=== PATIENT | female | born 1970 | race Caucasian/White ===

== ENCOUNTER 2017-05-20 08:07 | Day surgery (SDC) | payer BC ==
[2017-05-19 12:16] VITALS: BMI 33.5
--- NOTE | 2017-05-20 04:32 | HP ---
HISTORY AND PHYSICAL CHIEF COMPLAINT: Left knee pain. 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 She does not recall specific new injury. She is having pain with walking along with intermittent catching and giving way. She had a previous arthroscopy in 2006. She has tried therapy in addition to an injection and anti-inflammatories with only partial temporary relief. She notes the pain is limiting her. PAST MEDICAL HISTORY: Negative. PAST SURGICAL HISTORY: Significant for left knee arthroscopy. CURRENT MEDICATIONS: Ibuprofen. ALLERGIES: She denies drug allergies. FAMILY HISTORY: Family history is negative. SOCIAL HISTORY: Significant for social alcohol use. REVIEW OF SYSTEMS: Sixteen point review of systems otherwise reviewed and is noncontributory. PHYSICAL EXAMINATION: On examination, the patient is approximately 5 foot 10, 231 pounds of endomorphic habitus. HEENT exam is nonfocal. NECK: Supple. She has painless passive motion of her left hip. Straight leg raise is negative. Active motion left knee -6 to 130 degrees of flexion. She is tender about the medial joint line. She has mild effusion. Collaterals are stable, Ree's negative, Newton's elicits medial pain. She has genu varum alignment. Her distal neurovascular appears intact in the left lower extremity. MRI report from 05/04/2017 shows increased signal on the posterior horn medial meniscus in addition to chondral defect of the medial femoral condyle and proximal medial tibia. IMPRESSION: 1. Left knee internal derangement with possible medial meniscal tear. 2. Left knee internal derangement, possible chondral injury medial femoral condyle. 3. Left knee medial compartment DJD. 4. Increased body mass index. RECOMMENDATIONS: I talked to the patient at length regarding her treatment options. At this point, she is having significant pain and mechanical symptoms despite conservative measures. After thorough discussion, she opts to proceed with surgery. We will plan to proceed with arthroscopic evaluation with possible partial medial meniscectomy in addition to medial femoral chondrectomy. Risks and benefits were discussed at length in layman's terms. We will likely perform that as an outpatient procedure. MMODL / IJN: [id number] /
[~2017-05-20 08:07] MED LIST: DEXAMETHASONE SOD PHOSPHATE 10 MG/ML 1 ML VIAL IV ONE; LACTATED RINGERS 1,000 ML IV SCH; MIDAZOLAM 2 MG/2 ML VIAL IV PRN; ONDANSETRON 4 MG/2 ML VIAL IVP ONE; SCOPOLAMINE 1.5MG/72HR PATCH TRANSDERM ONE; ceFAZolin IN SWFI 2 GM/20 ML SYRINGE IVP ONE
[2017-05-20] MEDS ORDERED: LIDOCAINE 1% 20 ML VIAL (10MG/ML) FOR IV START INTRADERMA ONE (08:37)
[2017-05-20] MEDS ORDERED: PROPOFOL 10 MG/ML 20 ML VIAL IV ONE (09:08)
[2017-05-20] MEDS ORDERED: HYDROmorphone (PF) 1 MG/ML ONE (09:08)
[2017-05-20] MEDS ORDERED: MIDAZOLAM 2 MG/2 ML VIAL ONE (09:08)
[2017-05-20] MEDS ORDERED: LIDOCAINE 1% INJ 10MG/ML (20 ML MDV) ONE (09:08)
[2017-05-20] MEDS ORDERED: fentaNYL (PF) 50 MCG/ML 2 ML AMP ONE (09:08)
[2017-05-20] MEDS ORDERED: SODIUM CHLORIDE 0.9% 20 ML with ceFAZolin 2 GM IV ONE ×2 (09:15)
[2017-05-20 10:08] VITALS: TEMP 97.4
--- NOTE | 2017-05-20 10:11 | P.OP ---
Date of Procedure: 05/20/17 Preoperative Diagnosis: Left knee internal derangement Postoperative Diagnosis: Left knee posterior medial meniscal tear/grade 3 chondral injury medial femoral condyle/grade 3 chondral injury lateral femoral condyle/grade 2 chondral injury lateral patella facet/reactive synovitis Procedure(s) Performed: Left knee arthroscopic partial medial meniscectomy/medial femoral chondrectomy/ lateral femoral chondrectomy/patellar chondroplasty/partial synovectomy of the medial, lateral, and patellofemoral compartments Anesthesia: GETA Surgeon: Remy Kat Estimated Blood Loss (ml): 10 Pathology: none sent Condition: stable Disposition: PACU Indications for Procedure: The patient's a 46-year-old female presents with progressive left knee pain and mechanical symptoms worsening recently despite conservative measures. A discussion of the risks and benefits of operative intervention versus continued conservative measures was made with patient. She opted to proceed with surgery. Operative risks to include infection, neurovascular injury, development of blood clots, possible incomplete resolution of symptoms, possible worsening of symptoms related to her osteoporosis and need for subsequent procedures was discussed. Informed consent was obtained. Operative Findings: As below Description of Procedure: The patient was brought to the operating room, and after induction of anesthesia , I examined the left knee. Collaterals were stable, Ree was negative, and posterior drawer was negative. The left lower extremity was prepped and draped in normal fashion. A superior lateral portal was made through a 3 mm skin incision superior and lateral to the patella. This was used for outflow. A lateral portal was made through a 5 mm skin incision lateral to the patella tendon above the joint line. Diagnostic arthroscopy was performed. A medial portal was made through a similar incision medial to the patella tendon above the joint line. On inspection the medial compartment, she is noted to have an oblique tear involving the posterior most aspect the medial meniscus in the white-red junction. This was not amenable to repair. This debris back to stable base with straight baskets and a motorized shaver. The edges were contoured. Remaining medial meniscus was stable and intact. A grade 3 chondral injury involving the posterior central portion medial femoral condyle was noted. There was a loose chondral fragment debrided back to stable base with motorized shaver. Diffuse degenerative changes were noted throughout the medial compartment. Reactive synovitis involving the anterior medial, anterior lateral, and patellofemoral compartments was debrided with a motorized shaver. On inspection the notch anterior cruciate ligament appeared to be intact. On inspection of the lateral compartment, a large grade 2/3 chondral injury involving the lateral aspect of the distal lateral femoral condyle was noted. There was a large loose chondral flap. This debrided back to stable base with a motorized shaver. The lateral meniscal is appeared to be stable and intact. On inspection patellofemoral articulation, a grade 2/3 chondral injury was noted involving the lateral patella facet with a loose chondral fragment. This debrided back to a stable base with a motorized shaver. The gutters were clear debris. The knee was then thoroughly irrigated. The portals were closed with Steri-Strips. A sterile dressing was applied in addition to a compression stocking. The patient was awoken from general anesthesia and transferred to recovery room in good condition. Blood loss was estimated at 10 mL. No complications were incurred.
[2017-05-20] MEDS ORDERED: KETOROLAC 30 MG/ML 1 ML VIAL IVP ONE (10:16)
[2017-05-20] MEDS: HYDROmorphone 0.5 MG/0.5 ML SYRINGE IVP PRN ×4 (10:19→10:40)
[2017-05-20] MEDS ORDERED: MEPERIDINE 50 MG/ML SYRINGE IVP ONE (10:47)
[2017-05-20 11:10] VITALS: RESP 18
[2017-05-20] MEDS ORDERED: HYDROcodone/APAP 5-325MG 1 EACH TAB PO ONE (12:16)
[2017-05-20] MEDS ORDERED: LACTATED RINGERS 1,000 ML IV ONE (13:24)
[2017-05-20 13:36] VITALS: BP 123/78; PULSE 66
== END 2017-05-20 13:55 | disposition home or self-care (01) ==
LOC: OR 08:07
PROVIDERS: ATTEND Orthopaedic Surgery
DX: S83.242A Other tear of medial meniscus, current injury, left knee, initial encounter (principal); S83.32XA Tear of articular cartilage of left knee, current, initial encounter; M65.862 Other synovitis and tenosynovitis, left lower leg; X58.XXXA Exposure to other specified factors, initial encounter; Z79.1 Long term (current) use of non-steroidal anti-inflammatories (NSAID)
CPT/HCPCS: 81025; 29881; J2250; J1100; J2175; J0690; J2405; J2001; J3010; J1885; J1170 ×2; J2704

== ENCOUNTER → 2017-11-22 | Outpatient (CLI) | payer BC ==
--- NOTE | 2017-11-22 17:16 | CONS ---
CONSULTATION REASONS FOR CONSULTATION: Excessive hypersomnia and fatigue. HISTORY OF PRESENT ILLNESS: This is a 47-year-old female patient, mother of 5 children. Who has worked for many hours over the past 15 years. 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 She used to work between 10 p.m. and 6:30 am in the morning. 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 Based on this, the patient had limited number of hours and she used to sleep somewhere between 8:00 am and midnight if she has she was given the chance to do so and she had the same sleep pattern for almost 15 years. Recently she quit her midnight job and she is working only her daytime job. Currently she is going to bed around 10:00 pm, wakes up at 4 a.m. in the morning. She had difficulties in switching her sleep to nighttime and she consulted with her primary care physician and she was started on 100 mg of trazodone at bedtime. She is able to sleep around 6-6.5 hours over a 24 hour period. Nevertheless, her has noted that she has been snoring very loud and at times, she would quit breathing and this obviously raises concern for obstructive sleep apnea. She feels tired and sleepy during the day. She has gained considerable amount of weight, 30 pounds over the past 6 months and 50 pounds over the past 5 years. She denies waking up in the middle of night for choking or gasping. No grinding of the teeth. Her current [place] score is 9. PAST MEDICAL HISTORY: Obesity. SURGICAL HISTORY: Lap band. ALLERGIES: Not known. OUTPATIENT MEDICATION: Includes trazodone and Naprosyn. SOCIAL HISTORY: Nonsmoker. No history of alcohol. No IV drugs. FAMILY HISTORY: Negative for sleep apnea. REVIEW OF SYSTEMS: 12-point review of system was done. It is positive for excessive fatigue and sleepiness along with snoring. No reported history of choking or gasping for air. No nocturia. No grinding of the teeth. No dry mouth. No anxiety or panic attacks. No palpitation. No heartburn. No restlessness in lower extremities. No sleepwalking or sleep talking. No problems with memory and concentration. No sleep paralysis. No hallucinations. No cataplexy. PHYSICAL EXAMINATION: BP is 137/83, pulse 97, respirations 16, temperature 97.3. Saturation 98% on room air. Height is 5 feet 8 inches, weight is 264, and BMI is 40.1, neck size 15 inches. General appearance: Calm, comfortable. Head is atraumatic, normocephalic. Neck is short, supple. Crowding of posterior pharynx. There is no goiter or neck masses. LUNGS: Diminished breath sounds bilaterally otherwise clear. HEART: Sounds are regular rate and rhythm. Normal S1, S2. No S3, S4. No murmurs. ABDOMEN: Soft, nontender. No organomegaly. EXTREMITIES: No edema. No cyanosis or clubbing. Skin: The patient has no wounds or ulcerations. NEUROLOGIC: The patient is alert and oriented x3. There is no focal neurological deficits. IMPRESSION: 1. Chronic hypersomnia [place] score of 9 currently under investigation. Rule out obstructive sleep apnea. 2. Abnormal sleep hygiene measures, improved as the patient remained at her midnight job and currently she is able to initiate and maintain around 6 hours of sleep on a 24 hour period and she is also on trazodone for sleep induction and maintenance. 3. Obesity with interval weight gain. Current BMI is 40.1. 4. Loud snoring. PLAN: 1. Encourage weight loss. 2. Continue trazodone for sleep induction and maintenance. 3. Improve sleep hygiene measures. 4. Set up this patient for screening polysomnogram looking for any significant obstructive sleep apnea contributing to her chronic hypersomnia. MMODL / IJN: [id number] /
== END | disposition home or self-care (01) ==
LOC: SLEEP 13:57
PROVIDERS: ATTEND Internal Medicine Critical Care Medicine
DX: G47.10 Hypersomnia, unspecified (principal); R06.83 Snoring; E66.9 Obesity, unspecified; Z68.41 Body mass index [BMI] 40.0-44.9, adult; Z72.821 Inadequate sleep hygiene; Z98.84 Bariatric surgery status; Z79.899 Other long term (current) drug therapy
CPT/HCPCS: 99211

== ENCOUNTER → 2017-12-19 | Outpatient (CLI) | payer BC ==
--- NOTE | 2017-12-19 08:55 | MR ---
EXAMINATION TYPE: MR knee RT wo con DATE OF EXAM: 12/19/2017 COMPARISON: Outside radiographs dated 11/09/2017 of the right knee HISTORY: Right knee pain TECHNIQUE: Multiplanar, multisequence imaging of the right knee is performed without IV contrast. FINDINGS: MEDIAL MENISCUS: There is a complex tear of the body and posterior horn of the medial meniscus. There is a longitudinal tear of the body and posterior horn with radial component and complete radial tear of the posterior horn approximately 7 mm on the posterior root. Intraosseous ganglion is also noted at the insertion of the posterior root that is multiloculated within the tibial plateau. Anterior hor n is grossly intact but slightly enlarged suggesting involvement of the longitudinal tear. LATERAL MENISCUS: Anterior and posterior horns are intact without tear. Incidental note is made of th ickening of the meniscal femoral ligament. CRUCIATE LIGAMENTS: The anterior and posterior cruciate ligaments are intact. Posterior fibers are di minutive and of high signal suggesting low-grade sprain. COLLATERAL LIGAMENTS: The medial collateral ligament and lateral collateral ligament complex are inta ct. High signal seen both superficial and deep to the medial collateral ligament although there is no discontinuity. Findings suggest underlying low-grade injury and MCL bursitis. EXTENSOR MECHANISM: Visualized quadriceps and patellar tendons are intact. EFFUSION: Small uncomplicated suprapatellar joint effusion is seen. POPLITEAL CYST: There is an elongated multiloculated popliteal cyst measuring up to 9.4 cm in cranio caudal dimension. TRICOMPARTMENT SPACES: As seen on the prior radiographs are tricompartmental marginal osteophytes and medial compartment joint space narrowing. CARTILAGE: There is a full-thickness cartilaginous defect of the weightbearing surface of the medial femoral compartment involving both tibial and femoral cartilage. Femoral defect measures 2.6 x 1.6 cm and tibial defect measures 1.7 x 1.0 cm. There is signal heterogeneity within the lateral compartment cartilage without focal defect. There is diffuse signal heterogeneity, focal apical fissuring, and lateral facet undermining without full-thickness defect. Fissure of the central trochlea is also seen as well as signal heterogeneity. BONE MARROW SIGNAL: There is mild opposing surface bone marrow edema of the medial weightbearing surf mony of the femoral condyle and medial tibial plateau likely secondary to full-thickness cartilaginous loss and meniscal tear. IMPRESSION: 1. Complex tear of the medial meniscus involving the body, posterior horn, approaching the posterior root, and suspected to involve the anterior horn. 2. Moderate tricompartmental arthropathy and severe medial compartment and chondrosis with full-thick ness cartilaginous defect of the weightbearing surface of the medial femoral condyle measuring 2.6 x 1.6 cm within the femur and 1.7 x 1.0 cm within the tibia on bone articulation and mild resultant opp osing surface bone marrow edema of the femoral condyle and medial tibial plateau. 3. Findings suggestive of low-grade injury of the ACL and medial collateral ligament with medial shira ateral ligament bursitis. 4. Small uncomplicated suprapatellar joint effusion. 5. Elongated multiloculated popliteal cyst measuring up to 9.4 cm.
== END | disposition home or self-care (01) ==
LOC: RADMRIMAIN 07:14
PROVIDERS: ATTEND Orthopaedic Surgery
DX: S83.231A Complex tear of medial meniscus, current injury, right knee, initial encounter (principal); M71.21 Synovial cyst of popliteal space [Baker], right knee; M17.11 Unilateral primary osteoarthritis, right knee; R93.7 Abnormal findings on diagnostic imaging of other parts of musculoskeletal system

== ENCOUNTER → 2018-08-02 | Outpatient (CLI) | payer BC ==
[2018-08-02 16:51] LABS: HCT 38.6 % (34.0-46.0); HGB 12.2 gm/dL (11.4-16.0); Hypochromasia Slight; MCH 26.3 pg (25.0-35.0); MCHC 31.6 g/dL (31.0-37.0); MCV 83.4 fL (80.0-100.0); Mean Platelet Volume 6.7; Platelet Count 396 k/uL (150-450); RBC 4.63 m/uL (3.80-5.40); RDW 14.4 % (11.5-15.5); WBC 12.7 k/uL (3.8-10.6)
[2018-08-02 17:08] LABS: INR 0.9 (<1.2); Prothrombin Time 9.8 sec (9.0-12.0)
[2018-08-02 23:10] LABS: Anion Gap 10.5 mmol/L (4.00-12.00); Calcium 9.1 mg/dL (8.7-10.3); Carbon Dioxide 23.5 mmol/L (21.6-31.8); Potassium 4.3 mmol/L (3.5-5.5)
[2018-08-02 23:33] LABS: Hemoglobin A1C 4.9 % (4.0-6.0)
== END | disposition home or self-care (01) ==
LOC: LABWHC1 15:46
PROVIDERS: ATTEND Orthopaedic Surgery Adult Reconstructive Orthopaedic Surgery
DX: Z01.812 Encounter for preprocedural laboratory examination (principal)
CPT/HCPCS: 36415; 80048; 83036; 85027; 85610; 87070

== ENCOUNTER → 2018-10-31 | Outpatient (CLI) | payer BC ==
[2018-10-31 08:38] LABS: Basophils # (A) 0.1 k/uL (0-0.2); Basophils % (A) 1 %; Eosinophils # (A) 0.3 k/uL (0-0.7); Eosinophils % (A) 4 %; HCT 41.2 % (34.0-46.0); Hypochromasia Slight; Lymphocytes # (A) 1.7 k/uL (1.0-4.8); Lymphocytes % (A) 19 %; MCHC 31.5 g/dL (31.0-37.0); MCV 79.6 fL (80.0-100.0); Mean Platelet Volume 6.6; Monocytes # (A) 0.5 k/uL (0-1.0); Monocytes % (A) 5 %; Neutrophils % (A) 69 %; Platelet Count 402 k/uL (150-450); RBC 5.18 m/uL (3.80-5.40); RDW 14.4 % (11.5-15.5); WBC 8.8 k/uL (3.8-10.6)
[2018-10-31 12:37] LABS: Erythrocyte Sedimentation Rate 16 mm/hr (0-20)
[2018-10-31 16:22] LABS: Iron Saturation 12.46 (12.00-45.00)
[2018-10-31 16:35] LABS: C Reactive Protein 2.2 mg/dL (0.0-0.8)
[2018-10-31 16:44] LABS: T4, Free (Free Thyroxine) 1.1 ng/dL (0.80-1.80)
== END | disposition home or self-care (01) ==
LOC: LABWHC1 07:43
DX: C94.6 Myelodysplastic disease, not elsewhere classified (principal)
CPT/HCPCS: 36415; 81206; 82728; 83540; 83550; 83615; 84439; 84443; 85025; 85652; 86140

== ENCOUNTER → 2018-12-30 | Outpatient (CLI) | payer BC ==
[2018-12-30 09:41] LABS: Basophils # (A) 0.1 k/uL (0-0.2); Basophils % (A) 1 %; Eosinophils # (A) 0.3 k/uL (0-0.7); Eosinophils % (A) 3 %; HCT 44.3 % (34.0-46.0); HGB 13.8 gm/dL (11.4-16.0); Lymphocytes % (A) 17 %; MCH 25.9 pg (25.0-35.0); MCHC 31.2 g/dL (31.0-37.0); MCV 82.9 fL (80.0-100.0); Mean Platelet Volume 6.6; Monocytes # (A) 0.5 k/uL (0-1.0); Monocytes % (A) 4 %; Neutrophils # (A) 8.9 k/uL (1.3-7.7); Neutrophils % (A) 75 %; Platelet Count 384 k/uL (150-450); RBC 5.35 m/uL (3.80-5.40); RDW 15.9 % (11.5-15.5)
[2018-12-30 09:53] LABS: African American GFR (CKD) >90 (>60 ml/min/1.73 sqM); Anion Gap 9 mmol/L; Blood Urea Nitrogen 10 mg/dL (7-17); Carbon Dioxide 27 mmol/L (22-30); Chloride 106 mmol/L (98-107); Glucose 92 mg/dL (74-99); Potassium 4.8 mmol/L (3.5-5.1); Sodium 142 mmol/L (137-145)
== END | disposition home or self-care (01) ==
LOC: LABPAT 08:51
PROVIDERS: ATTEND Obstetrics & Gynecology Obstetrics
DX: Z01.818 Encounter for other preprocedural examination (principal)
CPT/HCPCS: 36415; 80051; 82565; 82947; 84520; 85025; 87086

== ENCOUNTER 2019-01-09 07:16 | Day surgery (SDC) | payer BC ==
[2019-01-03 14:51] VITALS: BMI 33.0
--- NOTE | 2019-01-08 09:57 | HP ---
HISTORY AND PHYSICAL Preoperative history and physical for surgery tomorrow, 01/09/2019. CHIEF COMPLAINT: Heavy menstrual bleeding, dysmenorrhea. HISTORY OF PRESENT ILLNESS: This is a pleasant 48-year-old female, 5, para 5-0-0-5 that presents with increasing fatigue and heavy menstrual cycles. The patient has had an endometrial ablation done in 2009 and did well up until mid November. Patient noted that her bleeding became very heavy with increasing dysmenorrhea. Patient subsequently went to see her primary care doctor when was diagnosed with iron deficiency anemia. The patient has had an iron infusion without relief of symptoms. Patient does struggle with constipation, but she denies any change in her bowel patterns and she denies changes in stool color. Patient does wish definitive treatment with hysterectomy and ovarian conservation given her age. The patient subsequently had an ultrasound done here in the office on November 29, 2018, which revealed the uterus with the appearance of adenomyosis. Uterus is noted to be normal in size. PAST MEDICAL HISTORY: 1. Anemia. 2. History of HSV. PAST SURGICAL HISTORY: Endometrial ablation done in approximately 2009. ALLERGIES: No known drug allergies. FAMILY HISTORY: No significant family medical history. REPRODUCTIVE HISTORY: This is a 5, para 5, with a history of 5 vaginal deliveries in the past. Her menstrual cycles ceased after the ablation was done in 2009, but have been excessively heavy and irregular since it restarted in the beginning of November. SOCIAL HISTORY: She is a nonsmoker. She admits to minimal alcohol use. REVIEW OF SYSTEMS: She denies body aches or night sweats, but does note fatigue. She denies shortness of breath or cough. She denies nausea or vomiting, but admits to constipation and some abdominal pain. GENITOURINARY: She admits to dysmenorrhea and menorrhagia symptoms. She denies urgency, frequency, dysuria, or vaginal discharge. PHYSICAL EXAMINATION: Vital Signs are noted to be stable when patient was seen here in the office. In general, this is a well-nourished, well-developed, alert female in no acute distress. Her lungs are clear to auscultation bilaterally. Her heart has a regular rate and rhythm. Her abdomen is noted to be slightly obese and soft with normal bowel sounds. On vaginal exam, the vaginal mucosa is noted to be pink and well rugated. The cervix is noted to be normal in nature with no lesions, but is stenotic. Endometrial biopsy was attempted but failed secondary to the stenosis. On pelvic exam, the uterus is mobile and no adnexal masses are appreciated. ASSESSMENT: 1. Menorrhagia. 2. Anemia. 3. Dysmenorrhea. 4. Failed endometrial ablation. PLAN: We will plan robotic assisted vaginal hysterectomy with ovarian conservation, possible bilateral salpingo-oophorectomy should the pathology be seen at the time of surgery. Diagnostic cystoscopy will be performed at the end of the procedure. Possible open to complete the procedure. Risks of surgery were reviewed with the patient in detail including, but not limited to infection, bleeding, damage to bladder, bowel, ureteric or other pelvic structures. The patient understands the risks of the surgery and does wish to proceed. All questions are answered to the patient's satisfaction and we will plan on robotic assisted vaginal hysterectomy, diagnostic cystoscopy, possible bilateral salpingo-oophorectomy, possible open to complete procedure. MMODL / IJN: [id number] /
[~2019-01-09 07:16] MED LIST changes: -LACTATED RINGERS 1,000 ML IV SCH; +fentaNYL (PF) 50 MCG/ML 2 ML AMP IV PRN
[2019-01-09] MEDS: LACTATED RINGERS 1,000 ML IV SCH ×2 (07:55→20:07)
[2019-01-09] MEDS ORDERED: LACTATED RINGERS 1,000 ML IV ONE ×2 (11:35)
[2019-01-09] MEDS ORDERED: BUPIVACAINE (PF) 0.25% 30 ML VIAL SQ ONE ×2 (11:39→12:38)
--- NOTE | 2019-01-09 12:31 | P.HPOB ---
History of Present Illness H&P Date: 01/08/19 Chief Complaint: menorrhagia, dysmenorrhea, failed EA Past Medical History Additional Past Medical History / Comment(s): anemia,heavy menses History of Any Multi-Drug Resistant Organisms: None Reported Past Surgical History: Bariatric Surgery, Joint Replacement, Uterine Ablation Additional Past Surgical History / Comment(s): sarah knee replacement,lap band-fluid removed Past Anesthesia/Blood Transfusion Reactions: Motion Sickness Additional Past Anesthesia/Blood Transfusion Reaction / Comment(s): no hx blood transfusion Smoking Status: Never smoker - Past Family History Mother Family Medical History: No Reported History Medications and Allergies Home Medications Medication Instructions Recorded Confirmed Type Acetaminophen [Tylenol] 325 - 650 mg PO Q4H PRN 01/03/19 01/03/19 History Allergies Allergy/AdvReac Type Severity Reaction Status Date / Time hydrocodone [From Vicodin] Allergy Rash/Hives Verified 01/03/19 14:44 Exam Osteopathic Statement: *. No significant issues noted on an osteopathic structural exam other than those noted in the History and Physical/Consult.
--- NOTE | 2019-01-09 12:40 | P.OP ---
Date of Procedure: 01/09/19 Preoperative Diagnosis: menorrhagia, dysmenorrhea, anemia, failed EA Postoperative Diagnosis: same plus endometriosis Procedure(s) Performed: Robotic cyst vaginal hysterectomy with right salpingectomy, diagnostic cystoscopy Anesthesia: CORDELIA Surgeon: Ellie Rg Patient Account Liaison #1: Dulce Ribeiro Estimated Blood Loss (ml): 50 IV fluids (ml): 1,600 Urine output (ml): 475 Pathology: other (Uterus, right fallopian tube) Condition: stable Disposition: PACU Indications for Procedure: Failed endometrial ablation, menorrhagia, anemia Operative Findings: Enlarged globular uterus with signs of endometriosis and scarring. Description of Procedure: Patient was seen in the preoperative area and informed consent was obtained once again. Patient was counseled on the risks of surgery including but not limited to infection, bleeding, damage to bladder, bowel, ureteric or other pelvic structures. Patient stated understanding and wishes to proceed. Patient does desire ovarian conservation if at all possible. Patient was taken back to the operating suite where general anesthesia was obtained without difficulty by the anesthesia department. She was then prepped and draped in the normal sterile fashion in the dorsal lithotomy position. A weighted speculum was placed in the posterior vaginal vault and the anterior lip of the cervix was visualized gr asped with single tooth tenaculum and the endocervical canal was then dilated. A [employer]oder uterine manipulator was advanced into the uterus as a means to manipulate the uterus with the cervical cup being placed snugly against the cervix. A Jones catheter was placed under sterile technique. Attention was then turned to the patient's abdomen where 2 finger breaths above the umbilicus a small skin incision is made, this incision the Veress needle was placed. Once the Veress needle is deemed to be The position with a drop in CO2 pressure with insufflation of CO2 gas CO2 insufflation was allowed to occur. Approximately 3 L of gas or used to obtain pneumoperitoneum. At this time the incision was elongated to 12 mm and a 12 mm trocar and sleeve with the laparoscope in place placed through the incision and toward the pneumoperitoneum. At this time the above-noted findings are visualized. Additional port sites are then placed at 10 cm lateral and 3 cm inferior midline port these are operative 8 mm ports through the da Yisel machine. In the left upper quadrant a 12 mm trocar and sleeve is placed under direct visualization. At this time the da Yisel was docked in the usual fashion. The operative arms are then placed. In the right operative arm the monopolar scissors is placed in the left operative arm the bipolar forceps is placed. Attention then turned to the patient's uterine ovarian ligament which was visualized visualized regulated distally and proximally and divided. This continued through the broad and toward the round which was coagulated distally and proximal plane divided. The bladder flap from the left was then created using sharp and blunt dissection. Of note the left ovary and fallopian tube were noted to be slightly adherent to the bowel. Attention was then turned the patient's right uterine ovarian ligament which was visualized coagulated distally and proximally divided. The fallopian tube had been coagulated and transected prior to this. The round ligament was visualized coagulated distally and proximally divided. The bladder flap from the right was then created using sharp and blunt dissection. At this time the descending branch of the uterine artery was visualized coagulated and transected. Hemostasis was appreciated. This was then repeated on the opposite side. At this time Remaining attachment was a vaginal attachment therefore colpotomy incision was made in a circumferential fashion uterus and right fallopian tube were delivered through the vaginal opening. The pelvis then copiously irrigated and hemostasis was appreciated. The vaginal cuff was then closed with [id number] sutures of 0 Vicryl 4. Closure was complete hemostasis was appreciated. FloSeal was placed along the right lateral edge of the vaginal cuff. The right ureter was visualized and pulsating in a normal fashion. At this time all instruments removed from the patient's abdomen and the da Yisel was undocked in usual fashion. Attention was then turned the patient's Jones catheter which was removed without difficulty. The cystoscope was then performed. This cystoscope was placed through the urethra and toward the bladder bladder bubble was noted both ureteral orifices were noted to be spilling clear yellow urine. No bladder injuries were noted. The cystoscope was removed and the Jones catheter was replaced. Attention then turned the patient's abdomen where the skin incisions were closed with 4-0 Vicryl subcuticular fashion. Steri-Strips and sterile dressings were applied as needed. All counts were correct 2 patient tolerated procedure well and was taken the recovery room awake in stable condition.
[2019-01-09] MEDS ORDERED: HYDROmorphone 1 MG/ML 1 ML SYRINGE IVP ONE ×4 (12:50→13:09)
[2019-01-09] MEDS ORDERED: IBUPROFEN IV 800 MG in SODIUM CHLORIDE 0.9% 250 ML IV ONE (13:30)
[2019-01-09] MEDS: IBUPROFEN 600 MG TAB PO PRN (19:53)
[2019-01-09] MEDS ORDERED: traZODone HCL 50 MG TAB PO SCH (21:00)
[2019-01-09] MEDS: DOCUSATE 100 MG CAP PO SCH (21:06)
[2019-01-10] MEDS: IBUPROFEN 600 MG TAB PO PRN ×2 (03:46→08:55)
[2019-01-10 03:50] VITALS: TEMP 98.1
[2019-01-10 08:20] LABS: Basophils # (A) 0.1 k/uL (0-0.2); Basophils % (A) 0 %; Eosinophils # (A) 0.1 k/uL (0-0.7); Eosinophils % (A) 1 %; HCT 37.6 % (34.0-46.0); HGB 11.9 gm/dL (11.4-16.0); Lymphocytes # (A) 2.5 k/uL (1.0-4.8); Lymphocytes % (A) 16 %; MCH 26.6 pg (25.0-35.0); MCHC 31.7 g/dL (31.0-37.0); MCV 83.9 fL (80.0-100.0); Mean Platelet Volume 7.5; Monocytes # (A) 0.7 k/uL (0-1.0); Monocytes % (A) 4 %; Neutrophils # (A) 12.2 k/uL (1.3-7.7); Neutrophils % (A) 78 %; Platelet Count 317 k/uL (150-450); RBC 4.48 m/uL (3.80-5.40); RDW 15.9 % (11.5-15.5); WBC 15.7 k/uL (3.8-10.6)
--- NOTE | 2019-01-10 08:45 | P.DS ---
Providers Date of admission: 01/09/2019 Expected date of discharge: 01/10/19 Attending physician: Ellie Rg Primary care physician: Lucho Dong - Discharge Diagnosis(es) (1) Menorrhagia Current Visit: Yes Status: Acute (2) Dysmenorrhea Current Visit: Yes Status: Acute (3) Anemia Current Visit: Yes Status: Acute Hospital Course: This is a pleasanr 48 female that presents for DAGOBERTO/DC 12/10/2018. she had an EA done in 2009 and subsequently in november started having heavy, painful menses. she was seen by PCP and Iron deficiency anemia was diagnosed, subsequently she was placed on iron infusions. she underwent surgery without difficulty. signs of endometriosis were noted, for further details on the surgery please see the operative note. post operatively she is doing well. she is noting some gas pain but is walking and has had a spontaneous void. she is tolerating a regular diet without nausea or vomiting. she denies VB no n/v/f/c/ Plan - Discharge Summary Discharge Rx Participant: No New Discharge Prescriptions: No Action Acetaminophen [Tylenol] 325 - 650 mg PO Q4H PRN PRN Reason: Pain traZODone HCL 50 mg PO HS Discharge Medication List Acetaminophen [Tylenol] 325 - 650 mg PO Q4H PRN 01/03/19 [History] traZODone HCL 50 mg PO HS 01/09/19 [History] Follow up Appointment(s)/Referral(s): Ellie Rg DO [Doctor of Osteopathic Medicine] - 1 Week Patient Instructions/Handouts: Laparoscopic Hysterectomy (DC), Laparoscopic Hysterectomy (GEN) Discharge Disposition: HOME SELF-CARE
[2019-01-10 08:53] VITALS: BP 121/84; PULSE 70; RESP 16
[2019-01-10] MEDS: DOCUSATE 100 MG CAP PO SCH (08:56)
== END 2019-01-10 11:59 | disposition home or self-care (01) ==
LOC: OR 07:16 → 6PED 14:08 → OR 01-10 11:59
PROVIDERS: ATTEND Obstetrics & Gynecology Obstetrics
DX: N92.0 Excessive and frequent menstruation with regular cycle (principal); N94.6 Dysmenorrhea, unspecified; D50.9 Iron deficiency anemia, unspecified; N80.0 Endometriosis of uterus; N72 Inflammatory disease of cervix uteri; Z98.84 Bariatric surgery status; Z86.19 Personal history of other infectious and parasitic diseases; Z79.899 Other long term (current) drug therapy; Z88.5 Allergy status to narcotic agent; Z96.653 Presence of artificial knee joint, bilateral
CPT/HCPCS: 58552; S2900; 81025; 85025; 86850; 86900; 86901; 88307

== ENCOUNTER → 2019-03-06 | Outpatient (CLI) | payer BC ==
--- NOTE | 2019-03-06 10:00 | XR ---
EXAMINATION TYPE: XR chest 2V DATE OF EXAM: 03/06/2019 COMPARISON: NONE HISTORY: Abnormal blood count. Pneumonia. Fatigue. TECHNIQUE: Frontal and lateral views of the chest are obtained. FINDINGS: There is no focal air space opacity, pleural effusion, or pneumothorax seen. The cardiac silhouette size is within normal limits. The osseous structures are intact. Mild degenerative garibay es of the glenohumeral joints, left greater than right and acromioclavicular joints are seen. Minimal degenerative changes of the thoracic spine. External tubing overlies the upper abdomen on the latera l view only. IMPRESSION: No acute cardiopulmonary process.
--- NOTE | 2019-03-06 14:12 | MM ---
Reason for exam: screening (asymptomatic). History: Patient is postmenopausal. Physical Findings: A clinical breast exam by your physician is recommended on an annual basis and results should be correlated with mammographic findings. MG 3D Screening Mammo W/Cad Bilateral CC and MLO view(s) were taken. The breast tissue is heterogeneously dense. This may lower the sensitivity of mammography. No discrete abnormality. ASSESSMENT: Negative, BI-RAD 1 RECOMMENDATION: Routine screening mammogram of both breasts in 1 year.
== END | disposition home or self-care (01) ==
LOC: RADMAMWWP 06:58
DX: Z12.31 Encounter for screening mammogram for malignant neoplasm of breast (principal); J18.9 Pneumonia, unspecified organism
CPT/HCPCS: 71046; 77063; 77067

== ENCOUNTER → 2020-03-25 | Outpatient (CLI) | payer BC ==
--- NOTE | 2020-03-25 14:29 | MM ---
Reason for exam: additional evaluation requested from abnormal screening. Last mammogram was performed 1 month ago. History: Patient is postmenopausal. Physical Findings: Nurse did not find any significant physical abnormalities on exam. MG 3D Work Up W/Cad RT Spot compression CC, spot compression MLO, and LM view(s) were taken of the right breast. Prior study comparison: March 07, 2020, bilateral MG 3d screening mammo w/cad. March 06, 2019, bilateral MG 3d screening mammo w/cad. The breast tissue is heterogeneously dense. This may lower the sensitivity of mammography. The lateral posterior central focal asymmetry becomes less defined on spot images, suspect fibroglandular tissue. 6 month follow up recommended as it was not clearly seen previously. These results were verbally communicated with the patient and result sheet given to the patient on 03/25/20. ASSESSMENT: Probably benign, BI-RAD 3 RECOMMENDATION: Follow-up diagnostic mammogram of the right breast in 6 months.
== END | disposition home or self-care (01) ==
LOC: RADMAMWWP 13:32
PROVIDERS: ATTEND Obstetrics & Gynecology Obstetrics
DX: R92.8 Other abnormal and inconclusive findings on diagnostic imaging of breast (principal)
CPT/HCPCS: 77061; 77065

== ENCOUNTER → 2020-05-01 | Outpatient (CLI) | payer BC ==
--- NOTE | 2020-05-06 10:23 | USB ---
Reason for exam: clinical finding. History: Patient is postmenopausal. Indicated problem(s): pain in the right breast. Physical Findings: Nurse Summary: Patient complains of right pain lateral x 6 weeks (nurse mj). US Breast Limited RT Technologist: Karina Andrews Right limited breast ultrasound including focal area of concern, retroareolar and axilla demonstrates a 0.4 x 0.7 x 0.4cm cystic lesion at 8 o'clock, thin walled cyst and a 0.7 x 0.5 x 0.4cm benign lymph node at 9 o'clock. These results were verbally communicated with the patient and result sheet given to the patient on 05/01/20. ASSESSMENT: Benign, BI-RAD 2 RECOMMENDATION: Return to routine screening mammogram schedule for both breasts. Manage patient on a clinical basis.
== END | disposition home or self-care (01) ==
LOC: RADUSWWP 06:57
PROVIDERS: ATTEND Obstetrics & Gynecology Obstetrics
DX: N64.4 Mastodynia (principal)

== ENCOUNTER → 2020-08-12 | Outpatient (CLI) | payer BC ==
--- NOTE | 2020-08-12 09:40 | MM ---
Reason for exam: follow-up at short interval from prior study. Last mammogram was performed 5 months ago. History: Patient is postmenopausal. Physical Findings: Nurse did not find any significant physical abnormalities on exam. MG 3D Diag Mammo W/Cad RT CC and MLO view(s) were taken of the right breast. Prior study comparison: March 25, 2020, right breast MG 3d work up w/cad RT. March 07, 2020, bilateral MG 3d screening mammo w/cad. The breast tissue is heterogeneously dense. This may lower the sensitivity of mammography. There is no discrete abnormality. No significant new findings when compared with previous films. These results were verbally communicated with the patient and result sheet given to the patient on 08/12/20. ASSESSMENT: Benign, BI-RAD 2 RECOMMENDATION: Return to routine screening mammogram schedule for both breasts. Back on schedule. Manage on a clinical basis with regard to pain.
== END | disposition home or self-care (01) ==
LOC: RADMAMWWP 08:20
PROVIDERS: ATTEND Obstetrics & Gynecology Obstetrics
DX: R92.8 Other abnormal and inconclusive findings on diagnostic imaging of breast (principal)
CPT/HCPCS: 77061; 77065

== ENCOUNTER → 2022-12-04 | Outpatient (CLI) | payer BC ==
--- NOTE | 2022-12-04 11:55 | MR ---
EXAMINATION TYPE: MR shoulder RT wo con DATE OF EXAM: 12/04/2022 COMPARISON: None. HISTORY: Right shoulder pain with difficulty raising arm overhead for 4 months TECHNIQUE: Multiplanar, multisequence imaging of the right shoulder is performed without contrast. FINDINGS: Rotator Cuff: Supraspinatus and infraspinatus tendons are both intact. Rotator cuff muscle bulk is pr eserved. Subscapularis tendon appears intact. Acromioclavicular Joint: Mild narrowing with mild to moderate capsular hypertrophy. No significant sp urring. Glenohumeral Joint: There is large size joint effusion with prominent bony projection or osteophyte e xtending inferiorly from the medial humeral head. Narrowing inferiorly is noted. Labrum: The labrum appears grossly intact given limitation of non-arthrogram study. Biceps Tendon: The long head of biceps is in normal location within bicipital groove. Slight increase d signal and thickening intracapsular portion near biceps anchor. Bone marrow signal: No focal abnormal marrow signal is appreciated. Other: No additional significant abnormality is appreciated. IMPRESSION: Advanced glenohumeral joint arthropathy. No rotator cuff or labral tear. Some tendinosis of the long head of biceps tendon noted.
== END | disposition home or self-care (01) ==
LOC: RADMRIMAIN 10:11
PROVIDERS: ATTEND Family Medicine
DX: M19.011 Primary osteoarthritis, right shoulder (principal); M67.813 Other specified disorders of tendon, right shoulder

== ENCOUNTER → 2024-08-02 | Outpatient (CLI) | payer BC ==
[2024-08-02 13:09] LABS: Partial Thromboplastin Time 23.4 sec (22.0-30.0); Prothrombin Time 10.6 sec (10.0-12.5)
[2024-08-02 15:52] LABS: Basophils # (A) 0.11 X 10*3/uL (0.00-0.10); Eosinophils # (A) 0.29 X 10*3/uL (0.04-0.35); Eosinophils % (A) 2.6 %; HCT 44.7 % (37.2-46.3); HGB 13.5 g/dL (12.0-15.0); Lymphocytes # (A) 2.41 X 10*3/uL (0.90-5.00); Lymphocytes % (A) 21.9 %; MCH 25.9 pg (27.0-32.0); MCHC 30.2 g/dL (32.0-37.0); MCV 85.8 FL (80.0-97.0); Mean Platelet Volume 10.3 FL (9.5-12.2); Monocytes # (A) 0.66 X 10*3/uL (0.20-1.00); NRBC Per 100 WBC 0 X 10*3/uL (0.00-0.01); Neutrophils % (A) 67.3 %; Platelet Count 372 X 10*3/uL (140-440); RBC 5.21 X 10*6/uL (4.10-5.20); RDW 13.9 % (11.5-14.5)
[2024-08-02 16:07] LABS: BUN/Creat Ratio 19.67 Ratio (12.00-20.00); Blood Urea Nitrogen 11.8 mg/dL (9.0-27.0); Carbon Dioxide 24.4 mmol/L (21.6-31.8); Chloride 102 mmol/L (96-109); Glucose 87 mg/dL (70-110); Potassium 4.7 mmol/L (3.5-5.5); Sodium 137 mmol/L (135-145)
== END | disposition home or self-care (01) ==
LOC: LABWHC1 11:42
PROVIDERS: ATTEND Internal Medicine Cardiovascular Disease
DX: M31.6 Other giant cell arteritis (principal)
CPT/HCPCS: 36415; 80048; 85025; 85610; 85730; 86850; 86900; 86901

== ENCOUNTER → 2024-10-11 | Outpatient (CLI) | payer BC ==
--- NOTE | 2024-10-12 07:17 | US ---
EXAMINATION TYPE: US venous doppler duplex LE RT DATE OF EXAM: 10/11/2024 3:57 PM COMPARISON: NONE CLINICAL INDICATION: Female, 54 years old with history of I80.00 PHLEBITIS AND THOMBOPHLB OF SUPERFIC IAL VESSELS; Fell, Pain and swelling since. On thinners, Pain TECHNIQUE: The lower extremity deep venous system is examined utilizing real time linear array sonog cristy with graded compression, color doppler sonography, and spectral doppler. SIDE PERFORMED: Right FINDINGS: VESSELS IMAGED: Common Femoral Vein Deep Femoral Vein Greater Saphenous Vein * Femoral Vein Popliteal Vein Small Saphenous Vein * Proximal Calf Veins (* superficial vessels) Right Leg: Negative for DVT, Color Doppler imaging shows patency of the vessels. Spectral waveforms are within normal limits. IMPRESSION: 1. No evidence of acute deep vein thrombosis of the right lower extremity. [facility], , 10/12/2024 7:15 AM
== END | disposition home or self-care (01) ==
LOC: RADUSWWP 15:44
PROVIDERS: ATTEND Orthopaedic Surgery
DX: S80.01XA Contusion of right knee, initial encounter (principal); I80.00 Phlebitis and thrombophlebitis of superficial vessels of unspecified lower extremity; M97.8XXA Periprosthetic fracture around other internal prosthetic joint, initial encounter; R60.0 Localized edema; Z96.659 Presence of unspecified artificial knee joint